=== PATIENT | female | born 1990 | race Caucasian/White ===

== ENCOUNTER → 2018-01-14 | Day surgery (SDC) | payer OTHER ==
[~2018-01-14] VITALS: Ht 154.9 cm; Wt 52.2 kg
[~2018-01-14] MED LIST: JUNEL FE 1 MG-1 EACH PO
--- NOTE | 2018-01-18 13:01 | Operative Report ---
Operative/Inv Procedure Report Surgery Date: 01/18/18 Name of Procedure: Bilateral breast reduction Pre-Operative Diagnosis: Macromastia Post-Operative Diagnosis: Same Estimated Blood Loss: scant (200) Surgeon/Quality Manager: Damien Elizondo MD Anesthesia: general endotracheal tube Operative/Procedure Note Note: Patient was counseled in regards to the procedure the alternatives the risks and expected outcomes as relates to her request for surgical intervention to treat symptomatic macromastia. No guarantees were given in regards to the symptoms. SPS informed consent to read and understand. Today she signed informed consent after further discussion and marking the patient in the standing position for an inferior pedicle Leo pattern technique breast reduction. She was taken to the operating room placed supine on the table Venodyne boots are placed the chest was prepped and draped in usual sterile fashion general anesthesia had been established with intravenous antibiotics following the application of Venodyne boots. The epithelialization was carried out of the inferior pedicle approximately 10 cm. Moved in the usual fashion. She was temporarily closed put in the sitting position to assess symmetry and locate the nipple areola complexes. 3 layer closure was then carried out of all wounds.
== END ==
LOC: STS 03:20
DX: N62 Hypertrophy of breast (principal)
CPT/HCPCS: 81025; 88305; J0131; J0690; J2250; Q9968